=== PATIENT | female | born 1945 | race Caucasian/White ===

== ENCOUNTER → 2021-10-02 | Outpatient (CLI) | payer MEDICARE, OTHER ==
--- NOTE | 2021-10-02 14:00 | KCIC ---
INDICATION: Reason: Contusion Lt orbital tissues post fall. Abnormal eye movements. / Spl. Instructio ns: / History: Pt fell 09/27/21. COMPARISON: None. TECHNIQUE: Axial CT images obtained through the head and ORBIT One or more of the following individualized dose reduction techniques were utilized for this examinat ion: 1. Automated exposure control; 2. Adjustment of the mA and/or kV according to patient size; 3 . Use of iterative reconstruction technique. FINDINGS: Head: No midline shift. Suprasellar cistern is not effaced. Diffuse prominence of ventricles and sulci which can be seen with age-related volume loss. Scattered foci of low density of the white matter. Nonspecific but can be from chronic small vessel i schemic changes. No definite acute hemorrhage. Fluid within paranasal sinuses including sphenoid sinus, ethmoid air cells and maxillary sinuses bila terally. Orbits: Displaced left inferior orbital wall fracture with extraconal fat extending into the superior aspect of the left maxillary sinus. The fracture fragment is displaced inferiorly by approximately 8 mm with the fracture fragment measuring approximately 14 mm anterior to posterior and 11 mm in lateral dimen chris. The inferior rectus muscle abuts the fracture site but does not appear displaced into the maxillary s inus. There is also a displaced fracture of the left medial orbital wall with the medial rectus abutt ing the fracture site. There is air seen within the subcutaneous soft tissues as well at the left orbit and likely posttraum atic in nature. IMPRESSION: * No definite acute intracranial hemorrhage. * Acute appearing displaced fracture of the left orbital wall most severe at the inferior orbital wa ll with displaced fragment extending into the superior aspect of the maxillary sinus. Fracture also i nvolves the medial wall of the left orbit with displacement at this site as well. There is air within the soft tissues likely posttraumatic given the orbital wall fractures. Electronically signed by: Irvin Ocampo MD (10/02/2021 1:57 PM) [id number]
== END ==
LOC: KCIC CT 12:55
PROVIDERS: ATTEND Family Medicine
DX: S05.12XA Contusion of eyeball and orbital tissues, left eye, initial encounter (principal); S02.832A Fracture of medial orbital wall, left side, initial encounter for closed fracture; H51.9 Unspecified disorder of binocular movement; X58.XXXA Exposure to other specified factors, initial encounter; Y93.89 Activity, other specified; Y92.89 Other specified places as the place of occurrence of the external cause; Y99.8 Other external cause status
CPT/HCPCS: 70450; 70480